=== PATIENT | female | born 1955 | race African-American/Black ===

== ENCOUNTER 2017-08-02 18:10 | Emergency (ER) | payer OTHER ==
[2017-08-02 18:25] VITALS: BP 169/66; BMI 29.7
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
[2017-08-02] MEDS ORDERED: FLEXERIL TAB 10 MG PO ONE (21:19)
[2017-08-02] MEDS ORDERED: MOTRIN TAB 800 MG PO ONE ×2 (21:19→21:20)
[2017-08-02] MEDS ORDERED: FLEXERIL TAB 10 MG ONE (21:20)
== END 2017-08-02 21:25 | disposition home or self-care (01) ==
LOC: ER 18:22
DX: Z04.3 Encounter for examination and observation following other accident (principal); V87.7XXA Person injured in collision between other specified motor vehicles (traffic), initial encounter
CPT/HCPCS: 70450; 71250; 72125; 99283